=== PATIENT | female | born 1975 | race Caucasian/White ===

== ENCOUNTER 2016-10-26 18:04 | Emergency (ER) | payer SELFPAY ==
--- NOTE | 2016-10-26 18:16 | EDM.PDOC ---
[id number] Provider: 10/26/16 18:10 Source of Information: Reports: Patient, RN Notes Reviewed History Limitations: Reports: No Limitations - History of Present Illness INITIAL COMMENTS - FREE TEXT/NARRATIVE: Here with friend Chief complaint Left shoulder plain, thinks it is dislocated History of present illness 41-year-old female injured herself tubing, has been consuming alcohol, remote history of shoulder injury. Exquisite pain and they came straight here. No other injuries decreased movement in the left shoulder Left Shoulder Pain Score (Numeric/FACES): 6 - Related Data Allergies Allergy/AdvReac Type Severity Reaction Status Date / Time No Known Allergies Allergy Verified 10/26/16 18:18 Home Meds: Home Meds Hydrocodone/Acetaminophen [Hydrocodon-Acetaminophen 5-325] 1 - 2 each PO Q4H PRN #10 tab 10/26/16 [Rx] Review of Systems - Review of Systems Review Of Systems: ROS reveals no pertinent complaints other than HPI. Musculoskeletal: Reports: Shoulder Pain (Left side with decreased range of motion) ED EXAM, GENERAL - Physical Exam Exam: See Below Exam Limited By: No Limitations General Appearance: Alert, Anxious, Moderate Distress, Other (Normal vital signs , strong odor of alcohol, very anxious) Head: Atraumatic, Normocephalic Neck: Normal Inspection, Non-Tender, Full Range of Motion Respiratory/Chest: No Respiratory Distress, Lungs Clear Cardiovascular: Normal Peripheral Pulses, Regular Rate, Rhythm Extremities: Normal Inspection, Other (Tenderness around the left shoulder without any visible deformity, limited range of motion actively, passively I can demonstrate some rotation) Neurological: Alert, Normal Cognition Psychiatric: Anxious Skin Exam: Warm, Dry, Intact, Normal Color, No Rash Course - Vital Signs Last Recorded V/S: Last Vital Signs Temp 35.8 C 10/26/16 18:15 Pulse 84 10/26/16 18:15 Resp 18 10/26/16 18:15 BP 107/70 10/26/16 18:15 Pulse Ox 100 10/26/16 18:15 - Orders/Labs/Meds Orders: Active Orders 24 hr Category Date Time Status Orthopedic Treatments [RC] ASDIRECTED Care 10/26/16 20:04 Active Shoulder Comp Lt [CR] Stat Exams 10/26/16 18:16 Taken Meds: Medications Discontinued Medications Generic Name Dose Route Start Last Admin Trade Name Freq PRN Reason Stop Dose Admin Hydrocodone Bitart/Acetaminophen 2 tab 10/26/16 20:00 10/26/16 20:06 [place] 325-5 Mg PO 10/26/16 20:01 2 tab ONETIME ONE Administration - Re-Assessments/Exams Free Text/Narrative Re-Assessment/Exam: 10/27/16 02:01 41-year-old female with acute left shoulder injury, appears to be soft tissue, possibly sprain or strain of the rotator cuff. Initially declined analgesics X-ray of the shoulder is negative for fracture by my interpretation Hydrocodone/acetaminophen 5/25, 2 tablets by mouth for pain, patient declined parenteral analgesia See discharge instructions below Departure - Departure Time of Disposition: 20:01 Disposition: Home, Self-Care 01 Condition: Good Clinical Impression: Sprain of shoulder, left Qualifiers: Encounter type: initial encounter Shoulder sprain type: unspecified sprain Qualified Code(s): S43.402A - Unspecified sprain of left shoulder joint, initial encounter - Discharge Information Prescriptions: Hydrocodone/Acetaminophen [Hydrocodon-Acetaminophen 5-325] 1 - 2 each PO Q4H PRN #10 tab PRN Reason: Moderate to severe pain Instructions: Shoulder Sprain Referrals: PCP,None [Primary Care Provider] - Forms: ED Department Discharge Additional Instructions: Make appointment to see her doctor within 1 week for recheck Move that shoulder as much as you can after tonight, use a sling for 1 day only - My Orders Last 24 Hours: My Active Orders 10/26/16 18:16 Shoulder Comp Lt [CR] Stat 10/26/16 20:04 Orthopedic Treatments [RC] ASDIRECTED - Assessment/Plan Last 24 Hours: My Active Orders 10/26/16 18:16 Shoulder Comp Lt [CR] Stat 10/26/16 20:04 Orthopedic Treatments [RC] ASDIRECTED
[2016-10-26 18:18] VITALS: BP 107/70
[2016-10-26] MEDS ORDERED: Acetaminophen/HYDROcodone 325-5 MG Tab PO ONE (20:00)
--- NOTE | 2016-10-27 08:39 | CR ---
Shoulder Comp Lt HISTORY: pain from injury fall tubing FINDINGS: No acute fracture or dislocation is identified. Bony architecture and joint spaces are preserved. Soft tissues are unremarkable. IMPRESSION: No acute left shoulder abnormality identified.
== END 2016-10-26 20:11 | disposition home or self-care (01) ==
LOC: JP.ED 18:04
DX: S43.402A Unspecified sprain of left shoulder joint, initial encounter (principal); X58.XXXA Exposure to other specified factors, initial encounter
CPT/HCPCS: 73030; 99284; A9270